=== PATIENT | female | born 1935 | race Two or more races ===

== ENCOUNTER 2017-06-16 09:40 | Observation (INO) | payer OTHER, MEDICAID ==
[~2017-06-16] VITALS: Ht 147.3 cm; Wt 104.3 kg
[~2017-06-16 09:40] MED LIST: AMLO5TAB2 PO; ASPI81TA27 PO; ATOR20TA PO; CHOL20007 PO; CLOP75TA28 PO; LOSA100T27 PO; MECL-87 PO; METO25TA62 PO; NITR0.4S29 SL; OMEP20CA74 PO; PAR20T PO; TRAM50TA2 PO
[2017-06-16 10:22] LABS: Basophils # (auto) 0 uL; Basophils % (auto) 0.4 % (0.0-2.0); Eosinophils # (auto) 0.1 uL; Eosinophils % (auto) 1.3 % (0.0-7.0); Hematocrit 41.4 % (36.0-46.0); Hemoglobin 13.6 g/dL (12.2-16.2); Lymphocytes # (auto) 1.7 uL; Lymphocytes % (auto) 29.4 % (10.0-50.0); Mean Corpuscular Hemoglobin 28.6 pg (28.0-32.0); Mean Corpuscular Hgb Conc. 32.9 g/dL (32.0-36.0); Mean Corpuscular Volume 86.9 fL (80.0-100.0); Monocytes # (auto) 0.5 uL; Monocytes % (auto) 8.3 % (0.0-12.0); Neutrophils # (auto) 3.5 uL; Neutrophils % (auto) 60.6 % (37.0-80.0); Nucleated Red Blood Cells % 0.1 %; Platelet Count (auto) 276 10^3/uL (140-450); Red Blood Cells 4.77 10^6/uL (4.0-5.20); Red Cell Distribution Width 16.3 % (11.8-14.3); White Blood Cell 5.8 10^3/uL (4.4-10.8)
[2017-06-16 10:40] LABS: Albumin 3.4 g/dL (3.4-5.0); Calcium 9.6 mg/dL (8.5-10.1); Potassium 4.2 mmol/L (3.5-5.1)
[2017-06-16 10:45] LABS: Bilirubin, Total 0.3 mg/dL (0.2-1.0); Total Protein 7.4 g/dL (6.4-8.2)
[2017-06-16 11:17] LABS: Urine Bacteria FEW /hpf (None Seen); Urine Blood TRACE /uL (Negative); Urine Hyaline Cast FEW /lpf (0 - 2); Urine Mucus FEW (None Seen); Urine WBC 1 /hpf (0 - 5)
[2017-06-16 11:31] VITALS: BP 152/117
[2017-06-16] MEDS ORDERED: HYDROcodone-ACET 10/325MG TAB PO ONE (13:45)
== END 2017-06-16 14:25 | disposition home or self-care (01) | DRG 690 ==
LOC: ER 09:40 → OVERFLOW 12:17 → ER 14:25
PROVIDERS: ADMIT Family Medicine; ATTEND Family Medicine
DX: N39.0 Urinary tract infection, site not specified (principal); E78.5 Hyperlipidemia, unspecified; M19.90 Unspecified osteoarthritis, unspecified site; I10 Essential (primary) hypertension; K43.9 Ventral hernia without obstruction or gangrene; Z90.710 Acquired absence of both cervix and uterus
CPT/HCPCS: 36415; 71045; 74176; 80053; 81001; 85025; 93005; 99285; G0378

== ENCOUNTER 2017-06-21 18:29 | Emergency (ER) | payer OTHER, MEDICAID ==
[~2017-06-21] VITALS: Ht 144.8 cm; Wt 93.0 kg
[2017-06-21 18:44] VITALS: BP 152/36
== END 2017-06-21 22:00 | disposition left against medical advice (07) ==
LOC: ER 18:29
DX: R10.2 Pelvic and perineal pain (principal); Z53.21 Procedure and treatment not carried out due to patient leaving prior to being seen by health care provider